=== PATIENT | female | born 1980 | race Caucasian/White ===

== ENCOUNTER 2019-04-04 07:13 | Outpatient (CLI) | payer OTHER ==
[~2019-04-04 07:13] MED LIST: SYNTHROID100 MCG PO; SYNTHROID125 MCG PO; TESSALON PERLE100 MG PO; TUSSI-PRES B LIQ5 ML; ZYRTEC10 MG PO
== END 2019-04-04 07:21 | disposition home or self-care (01) ==
LOC: LAB 07:13
DX: R42 Dizziness and giddiness (principal); Z00.00 Encounter for general adult medical examination without abnormal findings; E78.49 Other hyperlipidemia; E55.9 Vitamin D deficiency, unspecified

== ENCOUNTER → 2019-06-18 | Outpatient (CLI) | payer OTHER | END | disposition home or self-care (01) | LOC: RAD 08:10 | DX: N94.0 Mittelschmerz (principal); R10.2 Pelvic and perineal pain; N94.89 Other specified conditions associated with female genital organs and menstrual cycle ==

== ENCOUNTER → 2019-06-20 09:36 | Outpatient (CLI) | payer OTHER | END | disposition home or self-care (01) | LOC: LAB 09:36 | DX: J11.1 Influenza due to unidentified influenza virus with other respiratory manifestations (principal) ==

== ENCOUNTER 2019-10-16 14:00 | Outpatient (CLI) | payer OTHER | END 2019-10-16 14:25 | disposition home or self-care (01) | LOC: MAMO-SONO 14:00 | DX: Z12.31 Encounter for screening mammogram for malignant neoplasm of breast (principal); Z87.898 Personal history of other specified conditions; N63.10 Unspecified lump in the right breast, unspecified quadrant; N63.20 Unspecified lump in the left breast, unspecified quadrant; N64.89 Other specified disorders of breast; N64.59 Other signs and symptoms in breast ==

== ENCOUNTER 2019-10-17 15:04 | Outpatient (CLI) | payer OTHER | END 2019-10-17 15:22 | disposition home or self-care (01) | LOC: MAMO-SONO 15:04 | DX: Z12.31 Encounter for screening mammogram for malignant neoplasm of breast (principal); Z87.898 Personal history of other specified conditions; R92.8 Other abnormal and inconclusive findings on diagnostic imaging of breast ==

== ENCOUNTER 2020-03-18 06:53 | Outpatient (CLI) | payer OTHER | END 2020-03-18 06:58 | disposition home or self-care (01) | LOC: LAB 06:53 | PROVIDERS: ATTEND Internal Medicine Sports Medicine | DX: E11.9 Type 2 diabetes mellitus without complications (principal); D64.89 Other specified anemias; E78.2 Mixed hyperlipidemia; K76.89 Other specified diseases of liver; E03.8 Other specified hypothyroidism; E55.9 Vitamin D deficiency, unspecified; R29.898 Other symptoms and signs involving the musculoskeletal system ==

== ENCOUNTER → 2020-03-31 13:00 | Outpatient (CLI) | payer OTHER | END | disposition home or self-care (01) | LOC: PPH VACUNA 13:00 | DX: Z23 Encounter for immunization (principal) ==

== ENCOUNTER 2020-07-02 07:09 | Outpatient (CLI) | payer OTHER | END 2020-07-02 07:15 | disposition home or self-care (01) | LOC: MAMO-SONO 07:09 | PROVIDERS: ATTEND Internal Medicine Sports Medicine | DX: Z12.31 Encounter for screening mammogram for malignant neoplasm of breast (principal); N64.59 Other signs and symptoms in breast; Z00.00 Encounter for general adult medical examination without abnormal findings; N60.02 Solitary cyst of left breast; N60.01 Solitary cyst of right breast ==

== ENCOUNTER 2020-07-02 07:25 | Outpatient (CLI) | payer OTHER | END 2020-07-02 14:09 | disposition home or self-care (01) | LOC: LAB 07:25 | PROVIDERS: ATTEND General Practice | DX: A53.9 Syphilis, unspecified (principal) ==

== ENCOUNTER 2020-07-03 06:34 | Outpatient (CLI) | payer OTHER | END 2020-07-03 06:39 | disposition home or self-care (01) | LOC: LAB 06:34 | PROVIDERS: ATTEND Internal Medicine Sports Medicine | DX: D64.89 Other specified anemias (principal); E11.9 Type 2 diabetes mellitus without complications; E78.2 Mixed hyperlipidemia; E03.8 Other specified hypothyroidism; I10 Essential (primary) hypertension; E55.9 Vitamin D deficiency, unspecified ==

== ENCOUNTER → 2020-10-22 07:41 | Outpatient (CLI) | payer OTHER | END | disposition home or self-care (01) | LOC: LAB 07:41 | PROVIDERS: ATTEND Internal Medicine Sports Medicine | DX: R05 Cough (principal); R06.02 Shortness of breath; J20.8 Acute bronchitis due to other specified organisms; J12.89 Other viral pneumonia; J98.8 Other specified respiratory disorders ==

== ENCOUNTER 2020-12-10 07:03 | Outpatient (CLI) | payer OTHER | END 2020-12-10 07:20 | disposition home or self-care (01) | LOC: LAB 07:03 | PROVIDERS: ATTEND Internal Medicine Sports Medicine | DX: D64.9 Anemia, unspecified (principal); E11.9 Type 2 diabetes mellitus without complications; E78.2 Mixed hyperlipidemia; I10 Essential (primary) hypertension; E03.8 Other specified hypothyroidism; N30.00 Acute cystitis without hematuria ==

== ENCOUNTER 2021-03-15 08:00 | Outpatient (CLI) | payer OTHER | END 2021-03-15 08:30 | disposition home or self-care (01) | LOC: PPH VACUNA 08:00 | PROVIDERS: ATTEND Emergency Medicine Pediatric Emergency Medicine | DX: Z23 Encounter for immunization (principal) ==

== ENCOUNTER 2021-07-01 16:06 | Outpatient (CLI) | payer OTHER | END 2021-07-01 23:00 | disposition home or self-care (01) | LOC: LAB 16:06 | PROVIDERS: ATTEND Preventive Medicine Occupational Medicine | DX: Z20.828 Contact with and (suspected) exposure to other viral communicable diseases (principal) ==

== ENCOUNTER 2022-03-09 10:21 | Outpatient (CLI) | payer OTHER | END 2022-03-09 10:26 | disposition home or self-care (01) | LOC: PPH VACUNA 10:21 | PROVIDERS: ATTEND Emergency Medicine Pediatric Emergency Medicine | DX: Z23 Encounter for immunization (principal) ==

== ENCOUNTER 2022-05-15 09:27 | Emergency (ER) | payer OTHER ==
[~2022-05-15] VITALS: Ht 165.1 cm; Wt 95.3 kg
== END 2022-05-15 14:45 | disposition home or self-care (01) ==
LOC: ER 09:27
DX: B34.9 Viral infection, unspecified (principal); Z20.822 Contact with and (suspected) exposure to COVID-19

== ENCOUNTER 2022-06-01 18:01 | Emergency (ER) | payer OTHER ==
[~2022-06-01] VITALS: Ht 165.1 cm; Wt 90.7 kg
== END 2022-06-02 00:07 | disposition home or self-care (01) ==
LOC: ER 18:01
DX: J06.9 Acute upper respiratory infection, unspecified (principal); Z20.822 Contact with and (suspected) exposure to COVID-19; Z88.2 Allergy status to sulfonamides; Z88.8 Allergy status to other drugs, medicaments and biological substances

== ENCOUNTER 2022-09-30 06:22 | Outpatient (CLI) | payer OTHER | END 2022-09-30 06:26 | disposition home or self-care (01) | LOC: SONOGRAMA 06:22 | PROVIDERS: ATTEND Internal Medicine Pulmonary Disease | DX: Z12.31 Encounter for screening mammogram for malignant neoplasm of breast (principal); K76.0 Fatty (change of) liver, not elsewhere classified; R16.0 Hepatomegaly, not elsewhere classified; K76.89 Other specified diseases of liver ==

== ENCOUNTER 2022-09-30 06:41 | Outpatient (CLI) | payer OTHER | END 2022-09-30 06:47 | disposition home or self-care (01) | LOC: LAB 06:41 | PROVIDERS: ATTEND Internal Medicine Pulmonary Disease | DX: I10 Essential (primary) hypertension (principal); N93.9 Abnormal uterine and vaginal bleeding, unspecified; E03.9 Hypothyroidism, unspecified; E78.2 Mixed hyperlipidemia; D72.19 Other eosinophilia; M81.0 Age-related osteoporosis without current pathological fracture; R73.09 Other abnormal glucose; N39.0 Urinary tract infection, site not specified ==

== ENCOUNTER 2023-03-20 11:30 | Outpatient (CLI) | payer OTHER | END 2023-03-20 11:40 | disposition home or self-care (01) | LOC: PPH VACUNA 11:30 | PROVIDERS: ATTEND Emergency Medicine Pediatric Emergency Medicine | DX: Z23 Encounter for immunization (principal) ==

== ENCOUNTER 2023-04-24 10:03 | Outpatient (CLI) | payer OTHER | END 2023-04-24 10:11 | disposition home or self-care (01) | LOC: SONOGRAMA 10:03 | PROVIDERS: ATTEND Internal Medicine Endocrinology, Diabetes & Metabolism | DX: E04.1 Nontoxic single thyroid nodule (principal); Z16.23 Resistance to quinolones and fluoroquinolones; Z88.2 Allergy status to sulfonamides ==

== ENCOUNTER → 2023-05-02 09:28 | Outpatient (CLI) | payer OTHER | END | disposition home or self-care (01) | LOC: LAB 09:28 | PROVIDERS: ATTEND Internal Medicine Sports Medicine | DX: C73 Malignant neoplasm of thyroid gland (principal); E89.0 Postprocedural hypothyroidism; Z88.2 Allergy status to sulfonamides; Z88.1 Allergy status to other antibiotic agents ==

== ENCOUNTER 2023-07-14 12:12 | Outpatient (CLI) | payer OTHER | END 2023-07-14 12:16 | disposition home or self-care (01) | LOC: SONOGRAMA 12:12 | PROVIDERS: ATTEND Internal Medicine Sports Medicine | DX: R10.9 Unspecified abdominal pain (principal); L02.216 Cutaneous abscess of umbilicus ==

== ENCOUNTER 2024-03-29 07:20 | Outpatient (CLI) | payer OTHER ==
[2024-03-29 07:51] LABS: HEMATOCRIT 36.4 % (36.0-45.00); HEMOGLOBIN 12.5 g/dL (12.0-15.00); MEAN CELL VOLUME 87.9 fL (80.00-100.00); MEAN CORPUSCULAR HEMOGLOBIN 30.2 pg (27.00-32.0); MEAN CORPUSCULAR HGB CONC 34.3 g/dl (32.0-36.0); PLATELET COUNT 275 K/uL (150-450); RED BLOOD COUNT 4.14 M/uL (4.00-6.00); RED CELL DISTRIBUTION WIDTH 13.9 % (11.5-14.5)
[2024-03-29 09:22] LABS: PH,URINE 5.5 (5.0-8.0); URINE APPEARANCE Clear; URINE BILIRRUBIN Negative (NEGATIVE); URINE BLOOD Negative; URINE COLOR Yellow; URINE GLUCOSE Negative (NEGATIVE); URINE KETONE Negative (NEGATIVE); URINE LEUKOCYTE Negative; URINE NITRATE Negative; URINE PROTEIN Negative (NEGATIVE)
[2024-03-29 09:26] LABS: URINE BACTERIA 1626.4 uL (0.0-1933); URINE EPITHELIAL CELLS 41.7 uL (0.0-38.8); URINE RBC 2.7 uL (0.0-20.8)
[2024-03-29 09:37] LABS: URINE CAST 0.15 uL (0.0-1.40)
[2024-03-29 09:50] LABS: ALBUMIN 3.5 gm/dL (3.4-5.0); BILIRUBIN TOTAL 1.03 mg/dL (0.3-1.2); CALCIUM 8.6 mg/dL (8.5-10.1); CHOL HDL RATIO 2.6 (0-5.0); CREATININE SERUM 0.75 mg/dL (0.55-1.02); GFR 83.95; POTASSIUM 4.95 mEq/L (3.5-5.1); T4 FREE 0.66 NG/ML (0.76-1.46); TOTAL PROTEIN 7.5 gm/dL (6.4-8.2); TSH 14.3 uIU/mL (0.358-3.74)
== END 2024-03-29 10:25 | disposition home or self-care (01) ==
LOC: LAB 07:20
PROVIDERS: ATTEND Internal Medicine Sports Medicine
DX: D64.9 Anemia, unspecified (principal); E11.9 Type 2 diabetes mellitus without complications; E78.2 Mixed hyperlipidemia; I10 Essential (primary) hypertension; E03.8 Other specified hypothyroidism

== ENCOUNTER 2024-04-19 04:30 | Outpatient (CLI) | payer OTHER | END 2024-04-19 05:00 | disposition home or self-care (01) | LOC: PPH VACUNA 04:30 | PROVIDERS: ATTEND Emergency Medicine Pediatric Emergency Medicine | DX: Z23 Encounter for immunization (principal) ==

== ENCOUNTER 2024-07-25 07:54 | Outpatient (CLI) | payer OTHER ==
[2024-07-26 08:04] LABS: HEPATITIS A ANTIBODY IGG Negative (Negative); HEPATITIS B CORE IGG Negative (Negative); HEPATITIS C VIRUS ANTIBODY Non Reactive (Non Reactive)
== END 2024-07-25 07:58 | disposition home or self-care (01) ==
LOC: LAB 07:54
DX: A64 Unspecified sexually transmitted disease (principal); B19.9 Unspecified viral hepatitis without hepatic coma

== ENCOUNTER 2024-08-29 17:39 | Emergency (ER) | payer OTHER ==
[2024-08-29] MEDS ORDERED: KETOROLAC TROMETHAMINE 15 MG VIAL IM STA (19:38)
[2024-08-29] MEDS ORDERED: CEFTRIAXONE SODIUM 1,000 MG VIAL IM STA (19:38)
[2024-08-29] MEDS ORDERED: DUI500 PO (20:17)
== END 2024-08-29 20:24 | disposition home or self-care (01) ==
LOC: ER 17:39
DX: S90.811A Abrasion, right foot, initial encounter (principal); X58.XXXA Exposure to other specified factors, initial encounter; Y93.89 Activity, other specified; Y92.89 Other specified places as the place of occurrence of the external cause; Z88.2 Allergy status to sulfonamides

== ENCOUNTER 2024-09-13 15:50 | Outpatient (CLI) | payer OTHER ==
[~2024-09-13 15:50] MED LIST changes: +DUI500 PO
== END 2024-09-13 23:00 | disposition home or self-care (01) ==
LOC: LAB 15:50
PROVIDERS: ATTEND Internal Medicine Pulmonary Disease
DX: R05.9 Cough, unspecified (principal); R06.02 Shortness of breath; Z20.822 Contact with and (suspected) exposure to COVID-19